=== PATIENT | female | born 1940 | race Caucasian/White ===

== ENCOUNTER 2023-07-20 10:46 | Observation (INO) | payer OTHER ==
[2023-07-17 10:32] LABS: Absolute Eosinophils 0.3 K/uL (0-0.5); Absolute Lymphocytes (CBC) 2.8 K/uL (0.7-4.9); Basophils % 0.4 % (0-1.3); Eosinophils % 3.4 % (0-4.4); Hematocrit 43.1 % (36.0-45.0); Hemoglobin 14.3 g/dL (12.0-15.0); Lymphocytes % 34.2 % (15.3-44.8); MCH 31.7 pg (27.0-35.0); MCHC 33.1 g/dL (32.0-36.0); MCV 95.8 fL (80-100); MPV 8.6 fL (7.6-11.3); Monocytes % 12.3 % (3.3-12.3); Neutrophils % 49.7 % (41.7-73.7); Platelets 320 thou/uL (152-406); Red Cell Distribution Width 13.6 % (12.1-15.2)
[2023-07-17 10:34] LABS: Specific Gravity 1.022 (1.005-1.030); Urine Bacteria None Seen /HPF (<20); Urine Bilirubin NEGATIVE (Negative); Urine Blood Negative (Negative); Urine Clarity Turbid (Clear); Urine Color Yellow (Yellow); Urine Culture Reflex Order NOT NEEDED; Urine Glucose NEGATIVE (Negative); Urine Ketones NEGATIVE (Negative); Urine Microscopic Reflex YN ORDER UMIC; Urine Nitrite NEGATIVE (Negative); Urine Protein NEGATIVE (Negative); Urine RBC <5 /HPF (None Seen); Urine Urobilinogen Normal (Normal); Urine WBC <5 /HPF (<5)
[2023-07-17 10:40] LABS: PT Prothrombin Time 10.8 SECONDS (9.5-12.5); Protime INR 0.98
[2023-07-17 10:45] LABS: Anion Gap 7.6 mEq/L (5.0-15.0); Potassium 4.6 mEq/L (3.5-5.1)
--- NOTE | 2023-07-17 12:02 | EKG ---
Test Date: 2023-07-17 Test Time: 09:25:43 Professor Of Vegetable Science: JOSUÉ MEASUREMENT RESULTS: Intervals: Rate: 64 IN: 170 QRSD: 66 QT: 408 QTc: 420 [place]: P: 69 IN: 170 QRS: 45 T: 79 INTERPRETIVE STATEMENTS: Normal sinus rhythm with sinus arrhythmia Normal ECG No previous ECG available for comparison Electronically Signed On 07-17-23 12:02:03 CDT by Clemente Sanchez
[2023-07-20] MEDS: SCOPOLAMINE HYDROBROMIDE PATCH TD ONE (11:24)
[2023-07-20] MEDS: Ringers Lactate 1,000 ML IV ONE ×2 (11:24→15:31)
[2023-07-20] MEDS ORDERED: ONDANSETRON 4 MG/2 ML VIAL ONE (12:13)
[2023-07-20] MEDS ORDERED: propofoL 200 MG/20 ML VIAL IV ONE (12:13)
[2023-07-20] MEDS ORDERED: ROCURONIUM 50 MG/5 ML VIAL IV ONE (12:14)
[2023-07-20] MEDS ORDERED: LIDOCAINE 2% MPF 5 ML VIAL ONE (12:14)
[2023-07-20] MEDS ORDERED: FENTANYL CITR 100 MCG/2 ML ONE ×2 (12:14→15:54)
[2023-07-20] MEDS: CEFAZOLIN SODIUM 2 GM/VIAL ONE (12:31)
[2023-07-20] MEDS: CEFAZOLIN SODIUM 1 GM/VIAL ONE (13:10)
[2023-07-20] MEDS: LIDOCAINE HCL/EPINEPHRINE 20 ML MDV ONE (13:10)
[2023-07-20] MEDS: VASOPRESSIN 20 UNIT/ML VIAL ONE ×2 (13:24→15:08)
[2023-07-20] MEDS: NA CHLORIDE 0.9% 100 ML ONE (13:24)
[2023-07-20] MEDS ORDERED: dexAMETHasone 10 MG/ML VIAL ONE (14:36)
[2023-07-20] MEDS ORDERED: EPHEDRINE SULF 50 MG/ML VIAL ONE (14:38)
[2023-07-20] MEDS ORDERED: GLYCOPYRROLATE 0.2 MG/ML SYR ONE (14:57)
[2023-07-20] MEDS ORDERED: ACETAMINOPHEN 500 MG TAB PO PRN (17:28)
[2023-07-20] MEDS ORDERED: MORPHINE 2 MG/ML SYR IV PRN (17:28)
[2023-07-20] MEDS ORDERED: PROMETHAZINE INJ 25 MG/ML AMP IV PRN (17:28)
[2023-07-20] MEDS ORDERED: ONDANSETRON 4 MG/2 ML VIAL IV PRN (17:28)
--- NOTE | 2023-07-20 17:43 | P.BOP ---
Preoperative diagnosis: Incomplete uterovaginal prolapse, rectocele, KARLA Postoperative diagnosis: ant wall stg 1,ut prolapse,stg 2 post wall prolapse, enterocele post, KARLA Primary procedure: ant repair, post approach nayla SSLF colpopexy,Biolog graft aug postwall Secondary procedure: and enterocele repairs, perineorrhaphy TVT-O cysto Instructional Systems Designer: Kaitlin España Estimated blood loss: 100 Specimen: none Findings: 0/+1/0/5/mod/8/0/0/-1, cysto neg Anesthesia: General Complications: None Drain(s): Urinary catheter Implants: coloplast, TV T-O Fluids & blood products: 600 ml Transferred to: Recovery Room Condition: Good
[2023-07-20 18:12] VITALS: O2SAT 98
[2023-07-20] MEDS: Ringers Lactate 1,000 ML IV SCH (18:27)
[2023-07-20] MEDS: IBUPROFEN 600 MG TAB PO PRN (22:35)
[2023-07-20 23:45] VITALS: BMI 21.4
--- NOTE | 2023-07-21 05:08 | OP ---
Date of Procedure: 07/20/2023 Surgeon: Dominique Alfonso MD Belt Changer: Kaitlin Ritter. Preoperative Diagnoses: Incomplete uterovaginal prolapse, rectocele, and stress urinary incontinence . Postoperative Diagnoses: Anterior wall stage I uterine prolapse, posterior wall stage II prolapse, e nterocele that is posterior, and stress urinary incontinence. Procedures Performed: 1.Anterior vaginal wall repair. 2.Posterior approach, bilateral sacrospinous ligament fixation, colpopexy. 3.Biologic graft augmented posterior wall and enterocele repairs. 4.Perineorrhaphy. 5.Tension free vaginal tape obturator. 6.Cystoscopy. Specimens: None. Anesthesia: General endotracheal. Findings: POP-Q 0+, 1, 0, 5, moderate, 8, 0, 0, -1. Cystoscopy showed patent ureters. No evidence of any trauma or mesh in the bladder. Drains: Tovar catheter and vaginal packing. Implants: Coloplast and TVT-O. Fluids: 900. Urine Output: 200 Estimated Blood Loss: 100. Disposition: Transferred to the recovery room in stable condition. Indications: The patient is an 83-year-old female who presented with symptomatic vaginal prolapse, e valuated in the office. Discussed about all the options including pessary and surgical management an d wanted to proceed with surgery as she has a very active lifestyle. We discussed about the pelvic m ass that was found when she had a T12 compression fracture. Incidental finding when the ER had scann ed her was posterior cul-de-sac 5 cm fibroid or some sort of a mass. We evaluated her uterus. Endom etrial sampling was performed and was negative. Mostly atrophic endometrium on pathology. There was no other abnormality that was a risk for cancer either on the uterus, ovaries, or tubes at this time and so, discussed about the benefits and risks of hysterectomy alongside prolapse repair, and the pa wesley wanted to preserve her uterus as there is no risk of cancer at this time and she is 83. Vagina l prolapse repair was reviewed with the patient, both anterior and posterior wall and apical fixation with colpopexy. Graft augmentation using a biologic graft was discussed in whichever compartment or both compartments as needed, and on urodynamic evaluation, she had a stress urinary incontinence and therefore, a mid urethral sling was most logical to prevent KARLA postop. We discussed about all the benefits and risks including bleeding, infection, injury to the bowel, bladder, and ureters. Rare co mplications like intermittent self-catheterization, prolonged catheterization, fistula are all extrem effie uncommon, and dyspareunia. All these were reviewed with the patient. After she was consented, s he was brought to the hospital. She is past smoker, quit in 1981, pretty well-maintained health. 3, para 3. No other signif icant surgical history and no hysterectomy. After reviewing the preoperative consent, she was taken back to the OR. Her daughter was present at the bedside. After question and answers were done to their satisfaction, she was taken back to the O R. Description Of Procedure: She was placed in a supine position on the operating table. General anest hesia was given. She was placed in dorsal lithotomy position using Nathan stirrups. Lower abdomen, v ulva, vagina, perineum, and medial thighs were prepped and draped in a sterile fashion. Tovar was pl aced to drain the bladder. POP-Q was performed and documented. After this, it was obvious that the anterior compartment defect was not significant and definitely, there was no fascial defect in the an terior compartment in the midline other than a small defect probably that was a transverse defect in the distal portion of the anterior wall; however, due to significant prolapse likely from the apical defect, the laxity was much more apparent as an outpatient in the anterior compartment. The plan was to perform an anterior repair and then proceed with the larger posterior compartment def ect repair using a biologic graft. Anterior repair: From the level above the cervix to the UVJ, the midline was injected with dilute va sopressin. A midline incision was made, and the connective tissue was dissected off from the overlyi ng vaginal epithelium, and once all the fascia was dissected in the anterior compartment in the midli ne, the epithelial incision was extended to a T and then a triangular piece of vaginal epithelium wer e excised to be able to close this in a transverse fashion at the top. Once plication was done on th e transverse defect, the distal anterior wall with a 2-0 Vicryl interrupted sutures x4. Then, vagina l epithelial closure was done in the T-shape with continuous running 2-0 Vicryl. Posterior wall repair with biologic graft augmentation: The posterior compartment was marked. The p erineum was well visualized. Then a self-retaining [place] retractor was used. A V-shaped marking was made on the perineum from the hymen and inverted V-shaped incision on the top in the lower half of the posterior wall. Once this incision was made, the vaginal epithelium on the vaginal canal and the perineal epithelium from the incision here were all excised. Lateral tissues at the perineum and superficial and deep transverse perineum were all dissected and laid open. Then, posteri or compartment was approached and the connective tissue was taken down and the upper one-half of the posterior compartment was also opened up and there was a large enterocele here; however, the cervix w as well visualized and the enterocele was fully dissected. The posterior compartment defect in the proximal half was enterocele where the top of the rectovagina l septum was detached from the pericervical ring. Then, in the lower half, there was a distal left l ateral defect and then detachment from the perineal body was also present. Once the uterosacral ligaments attachments to the cervix were identified and these were held with All is clamps after dissecting off the cervix from the posterior approach, then 3 PDS sutures were placed , 1 in the midline and 1 on each of the uterosacral. Then, a biologic graft that was shaped into a Y , an 8 x 4 x 3 was cut out as a Y and it was soaked according to package instructions. It was taken out of the field. Then, the proximal 3 PDS sutures that were fixating the graft to the apex, which i ncluded the pericervical ring were tied down. Then, the posterior enterocele was repaired with Monoc ryl. The posterior defect was then repaired with 2-0 Vicryl in a continuous running fashion in the distal posterior wall. Perineal body defect repair or perineorrhaphy: The perineal body structures were sutured side-to-holly e using 2 layers of 2-0 Vicryl in an interrupted fashion at the perineal body. Once these were all s utured up, then the posterior compartment rectovaginal septum was reattached with interrupted 2-0 Dex ryl as well. Bilateral sacrospinous ligament fixation, colpopexy: The right the pararectal space was entered and ischial spine was palpated and the sacrospinous ligament was cleaned up by sweeping the medial and po sterior to the ischial spine. Once the ligament was cleared up and the bowel was swept medially, the Capio device was taken with Prolene suture and placed the mid ligament staying on the anterior surfa ce without encircling the ligament on both sides. These were held on hemostats. The lateral arms of the aspects of the graft were then attached to the Prolene suture with a wyatt s titch and these were the suspension sutures for the colpopexy. These were later tied once the vagina l epithelial closure was started. Continuation of the posterior wall defect: After the enterocele repair, the distal part of the graft was reattached to the proximal part of the rectovaginal septum with interrupted 2-0 PDS sutures x4. This completed the enterocele and posterior wall repairs. The vaginal epithelium was trimmed in the top and essentially, it was fashioned as an inverted T. Th e 2-0 Vicryl suture was used to close the vaginal epithelium from the proximal aspect at least up to 3 cm. Then this was held on a clamp. Once the distal graft was reattached and the entire repair was completed, then this was continued down all the way to the hymen. A transverse lateral suture was p laced with 3-0 Vicryl on each side to close in a tension-free fashion. Then, the perineal closure wa s done with subcutaneous and subcuticular 3-0 Vicryl sutures. The rectal exam was performed, was negative. Mid urethral sling: The mid urethral area was picked up with 2 Allis clamps, injected with dilute va sopressin. Then, 1 to 1.5 cm incision was made in the midline to dissect under the connective tissue . Then 2 tunnels were made in a 45-degree angle to the horizontal and vertical planes toward the ips ilateral obturator space. Once obturator membrane was perforated, the track was widened. This was p erformed on both sides. The TVT-O kit was opened, wing guide was placed, and the pre-created passage was traversed with the plastic guide and the needle to hug the inferior pubic ramus and externally e xit at a point lateral to the groin fold below the adductor longus tendon above the level of the uret hral meatus. The mesh in sheaths was held on July's and the dilators were cut. The sling was adjus kelsey with Metzenbaum scissors in the midline under the urethra. This was irrigated with antibiotic so lution. After the mesh sleeves were cut and the mesh was cut close to the skin, the skin was loosene d up and it was glued together with skin glue. The sling incision was then irrigated with antibiotic solution and closed with the help of continuous running 3-0 Vicryl suture. The Tovar was removed. Cystoscopy was performed with 30-degree lens nor mal saline and 17-[place] sheath. Patent ureters on both sides. Good efflux. No mesh or trauma to t he bladder. The instrument, needle, and sponge counts were correct at the end of the case. The blad swati was drained. Vaginal packing was placed. She was recovered from anesthesia and taken to PACU in stable condition. Pelvic exam and rectal exam were performed and were negative. She will follow up with us next week e ither for a voiding trial or it will be for her postop all instructions. She will be overnight here at the hospital. KATHARINE/ELLIE Voice ID: [id number] Report ID: [id number]
[2023-07-21] MEDS: ESTRADIOL APPL TOP SCH (09:00)
[2023-07-21] MEDS: MULTIVITAMIN TAB PO SCH (09:14)
[2023-07-21] MEDS: ATORVASTATIN 40 MG TAB PO SCH (09:14)
[2023-07-21] MEDS: DOCUSATE NA 100 MG CAP PO SCH (09:14)
[2023-07-21] MEDS: CALCIUM CARBONATE 500 MG TAB PO SCH (09:14)
[2023-07-21] MEDS: COENZYME Q10- 100 MG CAP PO SCH (09:14)
[2023-07-21] MEDS: POLYETHYL GLY 3350 17 GM/DOSE PO SCH (09:15)
[2023-07-21] MEDS: PSYLLIUM 1 PKT PO SCH (09:15)
[2023-07-21 14:01] VITALS: BP 146/74; TEMP 97.1
== END 2023-07-21 14:11 | disposition home or self-care (01) ==
LOC: OR 10:46 → 2ND 17:28
PROVIDERS: ADMIT Obstetrics & Gynecology; ATTEND Obstetrics & Gynecology
PROC: 0JQC0ZZ Repair Pelvic Region Subcutaneous Tissue and Fascia, Open Approach (ICD-10-PCS; 2023-07-20)
PROC: 0JUC0JZ Supplement of Pelvic Region Subcutaneous Tissue and Fascia with Synthetic Substitute, Open Approach (ICD-10-PCS; 2023-07-20)
PROC: 0TSD0ZZ Reposition Urethra, Open Approach (ICD-10-PCS; 2023-07-20)
PROC: 0USG7ZZ Reposition Vagina, Via Natural or Artificial Opening (ICD-10-PCS; principal; 2023-07-20 12:00)
DX: N81.2 Incomplete uterovaginal prolapse (principal); N39.3 Stress incontinence (female) (male); R79.1 Abnormal coagulation profile
CPT/HCPCS: 57282; 57265; 57267; 57288; 93005; 85025; 81001; 80048; 36415; 86900; 86850; 85610; 86901; 85730; 94010; J2704; J3010 ×2; J1100; J2405; G0378 ×3; J7120 ×5; J0690; G0379; J2001